=== PATIENT | male | born 1985 | race Two or more races ===

== ENCOUNTER 2016-08-01 14:19 | Emergency (ER) | payer OTHER ==
[2016-08-01 14:48] LABS: URINE SOURCE CLEAN CATCH
[2016-08-01 14:53] LABS: URINE APPEARANCE CLEAR; URINE BLOOD 1+ (NEG); URINE COLOR DK YELLOW; URINE GLUCOSE NEG (NORM); URINE KETONE NEG (NEG); URINE LEUKOCYTE ESTERASE NEG (NEG); URINE NITRATE NEG (NEG); URINE PH 5.5 (5-8); URINE PROTEIN NEG (NEG); URINE SPECIFIC GRAVITY >=1.030 (1.003-1.035)
[2016-08-01 14:54] LABS: MICRO INDICATED? YES; URINE BILIRUBIN POS (NEG)
[2016-08-01 14:56] LABS: CULTURE INDICATED? NO; URINE BACTERIA NEG (NEG); URINE GRANULAR CAST 0-2 /[HPF]; URINE HYALINE CAST 0-2 /[HPF]; URINE MUCUS PRESENT; URINE SQUAMOUS EPITHELIAL CELL OCCAS /[HPF]; URINE TRANSITIONAL EPI CELLS OCCAS /[HPF]; URINE WBC 0-2 /[HPF] (0-5)
== END 2016-08-01 15:37 | disposition home or self-care (01) ==
LOC: CED 14:19 → SED 14:19
PROVIDERS: Emergency Medicine
DX: K29.00 Acute gastritis without bleeding (principal); I10 Essential (primary) hypertension; J45.909 Unspecified asthma, uncomplicated
CPT/HCPCS: 81003; 99284